=== PATIENT | male | born 1975 | race Caucasian/White ===

== ENCOUNTER 2021-03-04 19:37 | Emergency (ER) | payer OTHER, SELFPAY ==
[2021-03-04 19:45] VITALS: BP 153/100; PULSE 102; RESP 20; TEMP 37.7; O2SAT 99
[2021-03-04] MEDS: KETOROLAC (*BKC) 60 MG/2 ML VIAL IM (20:15)
[2021-03-04] MEDS: LIDOCAINE HCL 1% LOCAL INJ 20 ML VIAL (20:18)
[2021-03-04] MEDS: cefTRIAXone 1 GM VIAL IM (20:18)
--- NOTE | 2021-03-04 20:45 | ED.DENTAL ---
HPI - Dental/Oral General Chief complaint: Dental/Oral Stated complaint: Mouth pain swollen on left side Time Seen by Provider: 03/04/21 19:47 Source: patient and RN notes reviewed Mode of arrival: ambulatory Limitations: no limitations History of Present Illness HPI Narrative: left upper molar toothache with marked left facial swelling. no acute pus drainage or fever. MD Complaint: tooth pain Location: Tooth # (15) Onset (ago): week(s) (2 weeks) Duration: worsening Severity: moderate Severity scale (1-10): 8 Relieving factors: nothing Exacerbating factors: chewing Context: history of dental caries and poor dental care Treatment prior to arrival: none Related Data Allergies Allergy/AdvReac Type Severity Reaction Status Date / Time No Known Allergies Allergy Verified 03/04/21 19:51 Review of Systems Review of Systems: All systems reviewed & are unremarkable except as noted in HPI and below Constitutional: Constitutional: Reports as per HPI and Reports no additional constitutional complaints Eyes: Eyes: Reports as per HPI and Reports no additional eye complaints ENT: Reports system reviewed and no additional complaints, except as documented and Reports as per HPI Cardiovascular: Cardiovascular: Reports as per HPI and Reports no additional cardiovascular complaints Respiratory: Respiratory: Reports as per HPI and Reports no additional respiratory complaints Gastrointestinal: Gastrointestinal: Reports as per HPI and Reports no additional gastrointestinal complaints Genitourinary: Genitourinary: Reports no additional male genitourinary complaints and Reports as per HPI Musculoskeletal: Musculoskeletal: Reports no additional musculoskeletal complaints Integumentary/Breasts: Skin/Breast: Reports system reviewed and no additional complaints, except as docu and Reports as per HPI Neurologic: Reports system reviewed and no additional complaints, except as documented and Reports as per HPI Psychiatric: Psychiatric: Reports no additional psychiatric complaints and Reports as per HPI Endocrine: Endocrine: Reports no additional endocrine complaints and Reports as per HPI Hematologic/Lymphatic: Hematologic/Lymphatic: Reports no additional hematologic/lymphatic complaints and Reports as per HPI Allergic/Immunologic: Allergic/Immunologic: Reports no additional allergic/immunologic complaints and Reports as per HPI Exam Const: General: no acute distress and alert Nutritional Appearance: well nourished Orientation/consciousness: patient oriented x3 HENMT: Head: normal to inspection Ears: external ears normal and TM's normal bilaterally General nose exam: Normal external nose present and Normal nares present Mouth: Yes moist mucous membranes Teeth and gingiva: abnormal tooth and associated gingiva Other: multiple carious teeth with eroded teeth. left cheek was swollen with no oropharyngeal swelling or pus drainage seen. no stridor. Eyes: Conjunctivae: conjunctivae normal Pupils: Equal, round and reactive pupils present EOM: EOMs intact bilaterally Neck: Neck: normal visual inspection and no lymphadenopathy Chest: Chest palpation & inspection: normal inspection of the chest Resp: Effort & Inspection: normal respiratory effort Auscultation: clear to auscultation bilaterally Cardio: Rate: regular rate Rhythm: regular rhythm GI: Inspection: distended Auscultation: normal bowel sounds : General: Yes bladder normal to palpation and Yes no CVA tenderness Male General Exam: Yes normal external exam Testes: Testes normal Back/Spine/Pelvis: Back: no CVA tenderness Skin: General skin exam: normal color Rashes: no rashes Neuro: General: patient oriented x3, moves all extremities, no focal motor deficits and CN's II-XI intact bilaterally Extrem: General: normal to inspection and no pedal edema Psych: Appearance: grossly normal Mental Status: mental status grossly normal Affect: normal affect Thought content: Ye
[2021-03-04 21:00] VITALS: BP 140/99; PULSE 100; RESP 18; TEMP 37.1; O2SAT 99
== END 2021-03-04 21:03 | disposition home or self-care (01) ==
PROVIDERS: Emergency Provider Emergency Medicine
DX: K04.7 Periapical abscess without sinus (principal); K08.89 Other specified disorders of teeth and supporting structures
CPT/HCPCS: 96372; 99282; 99284; J0696; J1885

== ENCOUNTER 2021-10-15 00:58 | Emergency (ER) | payer OTHER, SELFPAY ==
[2021-10-15 00:58] VITALS: BP 171/102; PULSE 101; RESP 18; TEMP 36.8; O2SAT 95
--- NOTE | 2021-10-15 01:27 | ED.DENTAL ---
HPI - Dental/Oral General Chief complaint: Dental/Oral Stated complaint: Lower Left Infected Tooth Time Seen by Provider: 10/15/21 00:59 Source: patient and RN notes reviewed Mode of arrival: ambulatory Limitations: no limitations History of Present Illness Complaint: tooth pain Location: Tooth # (19) Onset (ago): day(s) (2) Duration: constant Severity: moderate Severity scale (1-10): 8 Relieving factors: nothing Exacerbating factors: nothing Context: history of dental caries Associated symptoms: gum swelling Related Data Allergies Allergy/AdvReac Type Severity Reaction Status Date / Time No Known Allergies Allergy Verified 10/15/21 01:09 Review of Systems Review of Systems: All systems reviewed & are unremarkable except as noted in HPI and below PMFSH Past Medical History Medical History Abscessed tooth Exam Const: General: no acute distress and alert Nutritional Appearance: well nourished Orientation/consciousness: patient oriented x3 HENMT: Ears: external ears normal, TM's normal bilaterally and EAC's normal General nose exam: Normal external nose present and Normal nares present Face and sinus: sinuses nontender Mouth: Yes moist mucous membranes Teeth and gingiva: dentition normal (multiple carious teeth, with left lower gum swelling extending to the cheek) Throat: posterior oropharynx normal (hyperemic pharynx) Eyes: Conjunctivae: conjunctivae normal Pupils: Equal, round and reactive pupils present EOM: EOMs intact bilaterally Neck: Neck: normal visual inspection and no lymphadenopathy Other: supple Chest: Chest palpation & inspection: normal inspection of the chest Resp: Effort & Inspection: normal respiratory effort Auscultation: rhonchi Cardio: Rate: regular rate Rhythm: regular rhythm GI: GI Palp: Yes Soft to palpation and No Tenderness to palpation present (GI) Auscultation: normal bowel sounds : General: Yes bladder normal to palpation and Yes no CVA tenderness Male General Exam: Yes normal external exam Testes: Testes normal Back/Spine/Pelvis: Back: no CVA tenderness Skin: General skin exam: normal color Rashes: no rashes Neuro: General: patient oriented x3, moves all extremities, no meningeal signs, no focal motor deficits and CN's II-XI intact bilaterally Extrem: General: normal to inspection and no pedal edema Psych: Appearance: grossly normal and well kempt Mental Status: mental status grossly normal Affect: normal affect Attitude: cooperative Thought content: Yes Normal thought content present Course Course Emergency Course: Pt was stable in the ED. Reevaluation(s) Reevaluation #1: VSS Date: 10/15/21 Time: 01:29 Vital Signs Vital signs: Vital Signs Temperature 36.8 C 10/15/21 00:58 Pulse Rate 101 H 10/15/21 00:58 Respiratory Rate 18 10/15/21 00:58 Blood Pressure 171/102 H 10/15/21 00:58 Pulse Oximetry 95 10/15/21 00:58 Temperature 36.8 C 10/15/21 00:58 Pulse Rate 80 10/15/21 02:17 Respiratory Rate 18 10/15/21 00:58 Blood Pressure 158/106 H 10/15/21 02:17 Pulse Oximetry 95 10/15/21 00:58 MDM - Dental/Oral Differential Diagnosis Differential diagnosis: Likely gingival abscess, dental caries, toothache and dental abscess Medical Records Attestation: I reviewed the patient's medical records. Critical Care Time Critical Care Time Critical Care Time: No Total Critical Care Time: 0 Discharge Plan Discharge Clinical Impression: Abscessed tooth, Toothache, Dental caries Patient Disposition: Home, Self-Care Condition: Stable Instructions: Antibiotic Form, Dental Abscess (ED), Abscess (ED), Toothache (ED) Additional Instructions: Home. May RTC prn. Dentist in 1-2 days. Rx below Prescriptions: New amoxicillin 875 mg tablet 875 mg PO Q12H Qty: 20 RF: 0 ibuprofen 800 mg tablet 800 mg PO TID PRN (Reason: pain) Qty: 20 RF: 0 om
[2021-10-15] MEDS: cloNIDine HCL 0.2 MG TABLET PO ×2 (01:41→02:26)
[2021-10-15] MEDS: cefTRIAXone 1 GM VIAL IM (01:44)
[2021-10-15] MEDS: KETOROLAC (*BKC) 60 MG/2 ML VIAL IM (01:45)
[2021-10-15] MEDS: LIDOCAINE HCL 1% LOCAL INJ 20 ML VIAL (01:48)
[2021-10-15 02:17] VITALS: BP 158/106; PULSE 80
[2021-10-15 02:48] VITALS: BP 155/85; PULSE 86
[2021-10-15 02:50] VITALS: BP 155/85; PULSE 86; RESP 14; TEMP 37; O2SAT 97
== END 2021-10-15 02:55 | disposition home or self-care (01) ==
PROVIDERS: Emergency Provider Emergency Medicine
DX: K04.7 Periapical abscess without sinus (principal); K08.89 Other specified disorders of teeth and supporting structures; K02.9 Dental caries, unspecified
CPT/HCPCS: 96372; 99284; A9270; J0696; J1885

== ENCOUNTER 2022-03-25 11:24 | Emergency (ER) | payer OTHER, SELFPAY ==
--- NOTE | ~2022-03-25 | XR_ITS ---
[id number] DATE: 03/25/2022 12:02 INDICATION: Fall. Left rib pain. TECHNIQUE: PA chest. 3 views of the left ribs. COMPARISON: None FINDINGS: Probable old left fourth, fifth and sixth rib fracture deformities. No definite recent rib fracture is noted. No pulmonary infiltrate or consolidation, pleural effusion or pulmonary vascular congestion or pneumo thorax. Normal heart size. No hilar or mediastinal enlargement. IMPRESSION: Probable old left rib fractures No active cardiopulmonary disease Reviewed, dictated and finalized at [facility] Reviewed, dictated and finalized at [facility].
[2022-03-25 11:30] VITALS: BP 172/99; PULSE 79; RESP 18; TEMP 37.1; O2SAT 98
[2022-03-25 11:43] VITALS: BP 172/99; PULSE 79; RESP 16; TEMP 37.1; O2SAT 98
[2022-03-25] MEDS: ACETAMINOPHEN 500 MG TABLET 1000 MG PO (11:54)
--- NOTE | 2022-03-25 11:58 | ECG_ITS ---
Measurements Intervals [place] Rate: 74 P: 69 AR: 172 QRS: 59 QRSD: 102 T: 57 QT: 349 QTc: 389 Interpretive Statements SINUS RHYTHM WITH SINUS ARRHYTHMIA NORMAL ECG NO PREVIOUS ECG AVAILABLE FOR COMPARISON Electronically Signed On 03-26-2022 14:43:15 CDT by Ron Bran M.D.
[2022-03-25] MEDS: MAGNESIUM SULF 2 GM/WATER 50ML 2 GM/50 ML BAG IVPB (12:57)
[2022-03-25] MEDS: HYDROmorphone HCL INJ (*CRX) 2 MG/ML VIAL 0.5 MG IV PUSH (12:58)
[2022-03-25] MEDS: methylPREDNISolone SOD SUCC 125 MG VIAL IV PUSH (12:59)
[2022-03-25] MEDS: IPRATROPIUM 0.5 MG/ALBUTEROL SULFATE 2.5 MG AMPUL.NEB 3 ML INHALATION (13:08)
[2022-03-25 13:11] VITALS: PULSE 71; RESP 19; O2SAT 98
[2022-03-25 13:18] VITALS: PULSE 82; RESP 18; O2SAT 99
--- NOTE | 2022-03-25 13:29 | ED.GENADULT ---
HPI - General Adult General Chief complaint: Fall Stated complaint: L sided rib pain History of Present Illness HPI narrative: The patient is a 46-year-old male who was batting several wasps whereby he tripped on a garden hose and fell 1 hour prior to arrival, resulting in excruciating pain in the left rib cage laterally. He took ibuprofen at home for this without relief. He does have history of asthma in the distant past but he is not currently on any inhalers. He is a smoker. He does complain of mild shortness of breath with audible wheezing. Cannot take a deep breath in secondary to pain. No other complaints. No change in his chronic cough but is trying not to cough secondary to pain in the left rib cage. No fevers. past medical history is notable for asthma, possible COPD, hypertension, on valsartan hydrochlorothiazide. He is not currently on any inhalers. Related Data Home Medications Medication Instructions Recorded Confirmed valsartan 320 1 tablet PO DAILY 03/25/22 03/25/22 mg-hydrochlorothiazide 25 mg tablet Allergies Allergy/AdvReac Type Severity Reaction Status Date / Time No Known Allergies Allergy Verified 03/25/22 11:45 Review of Systems Review of Systems: All systems reviewed & are unremarkable except as noted in HPI and below Constitutional: Constitutional: Reports no additional constitutional complaints, Denies anorexia, Denies body ache(s), Denies chills, Denies excessive sweating, Denies fatigue, Denies fever(s), Denies frequent falls, Denies headache(s), Denies malaise and Denies poor appetite Eyes: Eyes: Reports no additional eye complaints, Denies blurry vision, Denies change in vision, Denies irritation, Denies itchy eyes and Denies photophobia ENT: Reports system reviewed and no additional complaints, except as documented, Reports Normal hearing present, Denies change in voice, Denies dysphagia, Denies vertigo, Denies dizziness, Denies ear discharge, Denies headache(s), Denies hearing loss, Denies hoarseness, Denies nasal congestion, Denies neck pain, Denies sinus pressure, Denies sore throat and Denies throat swelling Cardiovascular: Cardiovascular: Reports no additional cardiovascular complaints, Reports chest pain (laterally in the left rib cage), Denies syncope, Denies rapid heart rate, Denies irregular heart rhythm, Denies leg edema, Reports dyspnea and Denies slow heart rate Respiratory: Respiratory: Reports no additional respiratory complaints, Denies chest congestion, Reports cough, Reports dyspnea, Denies stridor and Reports wheezing Gastrointestinal: Gastrointestinal: Reports no additional gastrointestinal complaints, Denies abdominal pain, Denies melena, Denies hematochezia, Denies dysphagia, Denies diarrhea, Denies nausea and Denies vomiting Genitourinary: Genitourinary: Denies hematuria, Denies oliguria, Denies dysuria, Denies flank pain, Denies urinary frequency and Denies urinary urgency Musculoskeletal: Musculoskeletal: Reports no additional musculoskeletal complaints, Denies abnormal gait, Denies back pain, Denies myalgias, Denies arthralgias, Denies joint swelling, Denies limited range of motion, Denies muscle cramps, Denies muscle weakness, Denies neck pain and Denies numbness Integumentary/Breasts: Skin/Breast: Reports system reviewed and no additional complaints, except as docu, Denies breast pain, Denies change in pigmentation, Denies pruritus, Denies erythema and Denies wounds Comments: no bruising. no pain elsewhere Neurologic: Reports system reviewed and no additional complaints, except as documented, Reports Normal hearing present, Denies Abnormal speech present, Denies abnormal gait, Denies confusion, Denies vertigo, Denies dizziness, Denies syncope, Denies frequent falls, Denies headache(s), Denies focal weakness, Denies numbness and Denies paresthesias Psychiatric: Psychiatric: Reports no additional psychiatric complaints and Denies confusion Endocrine: Endocrine: Repo
[2022-03-25] MEDS: KETOROLAC 30 MG/ML VIAL (*BKC) IV PUSH (13:40)
[2022-03-25] MEDS: ORPHENADRINE CITRATE 30 MG/ML 2 ML VIAL 60 MG IV PUSH (13:40)
--- NOTE | 2022-03-25 13:47 | PC.NURSE ---
ekg complete at 1310, shown to dr jackson
[2022-03-25 13:52] LABS: Basophils Absolute Auto 0.06 K/mm3 (0.00-0.10); Basophils Percent Auto 0.5 % (0.0-1.0); Eosinophils Absolute Auto 0.07 K/mm3 (0.02-0.50); Eosinophils Percent Auto 0.6 % (1.0-6.0); Hematocrit 41.4 % (40.0-54.0); Hemoglobin 14.3 g/dL (14.0-18.0); Immature Granulocyte Absolute 0.05 K/mm3 (0.00-0.00); Immature Granulocyte Percent A 0.4 % (0.0-0.0); Lymphocytes Absolute Auto 1.63 K/mm3 (1.10-4.50); Lymphocytes Percent Auto 14.5 % (18.0-42.0); Mean Corpuscular HGB Conc 34.5 g/dL (32.0-36.0); Mean Corpuscular Hemoglobin 32.1 pg (27.0-31.0); Mean Corpuscular Volume 92.8 fL (78.0-102.0); Mean Platelet Volume 9.9 fl (8.7-11.0); Monocytes Absolute Auto 0.67 K/mm3 (0.10-0.90); Neutrophils Absolute Auto 8.8 K/mm3 (1.7-7.2); Platelet Count Result 169 K/mm3 (150-420); Red Blood Count 4.46 M/mm3 (4.70-6.10); Red Cell Distribution Width 12.2 % (11.6-14.4); White Blood Count 11.2 K/mm3 (4.8-10.8)
[2022-03-25 14:07] LABS: Albumin Level 4.4 g/dL (3.4-5.0); Alkaline Phosphatase 68 U/L (46-116); Anion Gap 11 mmol/L (8-16); Aspartate Amino Transferase 25 U/L (15-37); Bilirubin,Total 0.8 mg/dL (0.00-1.00); Blood Urea Nitrogen 11 mg/dL (7-18); Calcium 9.2 mg/dL (8.5-10.1); Carbon Dioxide 24 mmol/L (21-32); Chloride 105 mmol/L (98-108); Estimated Glomerular Filt Rate > 60; Glucose 105 mg/dL (70-99); Osmolality Calculated 289 mOsm/kg (285-295); Sodium 140 mmol/L (136-145); Total Protein 7.5 g/dL (6.4-8.2)
[2022-03-25 14:15] LABS: Alanine Aminotransferase < 6 U/L (16-63); CRP < 0.5 mg/dL (0.0-0.9)
[2022-03-25 14:29] LABS: SARS-CoV-2 RNA PCR Negative (Negative)
[2022-03-25 15:18] VITALS: BP 130/86; PULSE 67; RESP 16; TEMP 36.8; O2SAT 98
== END 2022-03-25 15:21 | disposition home or self-care (01) ==
PROVIDERS: Emergency Provider Emergency Medicine; PCP Family Medicine
DX: S22.42XA Multiple fractures of ribs, left side, initial encounter for closed fracture (principal); W19.XXXA Unspecified fall, initial encounter; J45.901 Unspecified asthma with (acute) exacerbation; Z20.822 Contact with and (suspected) exposure to COVID-19
CPT/HCPCS: 36415; 71101; 80053; 83735; 85025; 86140; 93005; 94640; 96365; 96375; 99284; C9803; J1170; J1885; J2360; J2930; J3475; U0003; U0005

== ENCOUNTER 2024-09-05 01:19 | Emergency (ER) | payer OTHER, SELFPAY ==
[2024-09-05] VITALS (9 sets, daily range): BP systolic 135–139; BP diastolic 84–88; PULSE 102–122; RESP 12–32; TEMP 36.9; O2SAT 96–100
--- NOTE | ~2024-09-05 | XR_ITS ---
EXAMINATION: XR chest 1V portable DATE: 09/05/2024 01:40 INDICATION: Shortness of breath. TECHNIQUE: A single frontal view of the chest was obtained. COMPARISON: Chest single view 06/16/2016, chest CT 06/16/2016 FINDINGS: There is no pneumonia, pleural effusion, or pneumothorax. The heart size is normal. There a re old healed bilateral rib fractures. IMPRESSION: 1. No acute cardiopulmonary disease. Reviewed, dictated and finalized at [facility] F CERTIFIED NURSE [employer]
--- NOTE | 2024-09-05 01:25 | ECG_ITS ---
Test Date: 2024-09-05 01:26:24 Measurements Intervals [place] Rate: 123 P: 85 [place]: 154 QRS: 56 QRSD: 102 T: 58 QT: 288 QTc: 413 Interpretive Statements SINUS TACHYCARDIA EARLY REPOLARIZATION [ST ELEVATION WITH NORMALLY INFLECTED T-WAVE] ABNORMAL RHYTHM ECG No previous ECG available for comparison Electronically Signed On 09-07-2024 18:17:15 [employer] by Neris Negro M.D.
--- NOTE | 2024-09-05 01:26 | ED.GENADULT ---
HPI - General Adult General Chief complaint: Shortness of Breath/Dyspnea Stated complaint: SOB Time Seen by Provider: 09/05/24 01:26 Source: patient Mode of arrival: ambulatory Limitations: no limitations History of Present Illness HPI narrative: 48 years old white male came to the emergency room with shortness of breath. History of asthma, does not have medicine at home, Patient reports symptom started couple days, got worse today. History of asthma/copd, tobacco dependent and hypertension. Related Data Home Medications ?Medication ?Instructions ?Recorded ?Confirmed ?Last Taken ?Type valsartan 320 1 tablet PO DAILY 03/25/22 03/25/22 Unknown History mg-hydrochlorothiazide 25 mg tablet Allergies Allergy/AdvReac Type Severity Reaction Status Date / Time No Known Allergies Allergy Verified 09/05/24 01:57 Review of Systems Review of Systems: All systems reviewed & are unremarkable except as noted in HPI and below PMFSH Past Medical History Medical History Abscessed tooth Exam Narrative: General appearance: Well-developed, well-nourished Skin: Normal color Head: Normocephalic, nontraumatic Eyes: Clear conjunctiva ENT: Oropharynx normal, ears normal, nose normal Neck: Supple, nontender Chest and respiratory: Airway patent, Labored breathing, diminution of air entry bilaterally, generalized wheezing bilaterally Heart: Regular rate/rhythm Abdomen: Soft, nontender, no organomegaly, quiet bowel sounds Musculoskeletal: Normal range of motion, nontender back Neurologic: Alert and oriented ?3 Medical Decision Making MDM Narrative Medical decision making narrative: patient came to the ED with difficulty breathing, history of COPD, run out of medications Vital signs showing heart rate of 113, respiratory rate 22 otherwise within normal limit Physical examination showing a patient with labored breathing, generalized wheezing bilaterally Differential diagnosis COPD exacerbation, respiratory viral infection, less likely pneumonia Chest x-ray showed Patient tested negative for COVID, flu and RSV. In the ED patient received DuoNeb, 60 mg prednisone p.o. Differential Diagnosis Differential Diagnosis: as above Imaging Data Radiologist's impression: chest x-ray showed no active cardiopulmonary disease ECG Data EKG #1: Attestation: I personally reviewed and interpreted this ECG as follows: ECG completion date: 09/05/24 Interpretation: EKG showed sinus tachycardia 23 beats per minute, nonspecific ST T-wave abnormality, abnormal EKG Discharge Plan Discharge Clinical Impression: Asthma exacerbation Patient Disposition: Home, Self-Care Condition: Improved Instructions: Asthma (ED) Additional Instructions: Return if symptoms are worsening , call your family physician for appointment, take Tylenol as as needed for aches and pain, continue home medications. Patient Language: [place] Prescriptions: New albuterol-budesonide 90-80 mcg/actuation HFA aerosol inhaler 2 inh inhalation QID PRN (Reason: shortness of breath) Qty: 10.7 0RF prednisone 20 mg tablet 40 mg PO DAILY 5 Days Qty: 10 0RF budesonide-formoterol [Symbicort] 160-4.5 mcg/actuation HFA aerosol inhaler 2 puff inhalation Q12H Qty: 10.2 0RF No Action valsartan-hydrochlorothiazide 320-25 mg tablet 1 tablet PO DAILY naproxen 500 mg tablet 500 mg PO BID 14 Days Qty: 28 0RF tramadol 50 mg tablet 50 mg PO Q6H PRN (Reason: pain) Qty: 20 0RF hydrocodone-acetaminophen 5-325 mg tablet 1 tablet PO Q8H PRN (Reason: pain) Qty: 20 0RF albuterol sulfate 90 mcg/actuation HFA aerosol inhaler 2 inh inhalation Q4H PRN (Reason: shortness of breath or wheezing) Qty: 8.5 2RF Rx Instructions: may substitute for the other inhaler sizes if the 8.5 gram size is not available prednisone 20 mg tablet 20 mg PO BID 3 Days Qty: 6 0RF Follow-up/Referrals: Nate Rosa MD [Primary Care Provider] -
[2024-09-05] MEDS: IPRATROPIUM 0.5 MG/ALBUTEROL SULFATE 2.5 MG AMPUL.NEB 3 ML INHALATION (01:34)
[2024-09-05] MEDS: predniSONE 20 MG TABLET 60 MG PO (01:36)
--- NOTE | 2024-09-05 01:36 | PC.NURSE ---
COVID PCR obtained and taken to lab
[2024-09-05] MEDS: ALBUTEROL SULFATE NEB 2.5 MG/3 ML INH 10 MG INHALATION (02:03)
[2024-09-05 02:18] LABS: SARS-CoV-2 RNA PCR Negative (Negative)
[2024-09-05 02:19] LABS: Influenza A QL RT-PCR Negative (Negative); Influenza B QL RT-PCR Negative (Negative); RSV RNA, RT-PCR Negative (Negative)
--- NOTE | 2024-09-05 03:00 | PC.NURSE ---
ERP aware of pt's vitals. No new orders.
== END 2024-09-05 03:02 | disposition home or self-care (01) ==
PROVIDERS: Emergency Provider Emergency Medicine; PCP Family Medicine
DX: J45.901 Unspecified asthma with (acute) exacerbation (principal); I10 Essential (primary) hypertension; Z20.822 Contact with and (suspected) exposure to COVID-19
CPT/HCPCS: 71045; 87637; 93005; 99283; J7512